=== PATIENT | female | born 1985 | race Hispanic/Latino ===

== ENCOUNTER 2017-01-04 09:38 | Emergency (ER) | payer OTHER ==
[~2017-01-04] VITALS: Ht 154.9 cm; Wt 67.4 kg
[~2017-01-04 09:38] MED LIST: IBUPROFEN800 MG PO; PRENAPLUS TABL1 EACH PO; PRENATAL1 EACH PO
[2017-01-04] MEDS ORDERED: BACTRIM,SEPT1 TABLET PO (10:20)
[2017-01-04 11:07] LABS: HEMATOCRIT 42.7 % (36.0-46.0); MCH 28.7 PG (29.0-34.0); MCHC 33.3 G/DL (30.0-36.0); MCV 86.3 FL (83-99); MEAN PLAT.VOLUME 10.7 uM^3 (9.5-12.4); PLATELET COUNT 375 K/uL (156-360); RBC DIS.WIDTH-CV 12.5 % (11.8-14.6); RBC DIS.WIDTH-SD 39.1 % (39-53); RED BLOOD COUNT 4.95 M/uL (3.80-5.20); WHITE BLOOD COUNT 6.5 K/uL (4.1-10.2)
[2017-01-04 11:17] LABS: CHLORIDE 110 mEq/L (99-109); POTASSIUM 3.9 mEq/L (3.7-5.4); SODIUM 139 mEq/L (136-147)
[2017-01-04 11:19] LABS: GLUCOSE 94 mg/dL (70-99)
[2017-01-04 11:20] LABS: ANION GAP 11 MEQ/L (2-14)
[2017-01-04 11:23] LABS: GFR ESTIMATE (CALCULATED) > 59 mL/min/
[2017-01-04 11:24] LABS: UREA NITROGEN (BUN) 12 mg/dL (9-23)
[2017-01-04 11:27] LABS: TROP-I INTERPRETATION NEGATIVE; TROPONIN-I < 0.01 ng/mL (0.0-0.30)
[2017-01-04 11:32] LABS: QUANTITATIVE HCG < 4.0 MIU/ML
[2017-01-04 12:38] VITALS: BP 115/59
== END 2017-01-04 12:39 | disposition home or self-care (01) ==
LOC: EME 09:38
PROVIDERS: Emergency Medicine
DX: R07.89 Other chest pain (principal)
CPT/HCPCS: 80048; 84484; 84702; 85027; 93005; 99281; 99284; J1200; J1885; J2765; J7030

== ENCOUNTER 2018-04-28 09:15 | Emergency (ER) | payer OTHER ==
[~2018-04-28] VITALS: Ht 157.5 cm; Wt 66.6 kg
[~2018-04-28 09:15] MED LIST changes: +BACTRIM,SEPT1 TABLET PO
[2018-04-28] MEDS ORDERED: MOTRIN600 MG PO (13:07)
[2018-04-28 13:14] VITALS: BP 116/72
== END 2018-04-28 13:16 | disposition home or self-care (01) ==
LOC: EME 09:15
DX: S80.01XA Contusion of right knee, initial encounter (principal); S39.012A Strain of muscle, fascia and tendon of lower back, initial encounter; W01.0XXA Fall on same level from slipping, tripping and stumbling without subsequent striking against object, initial encounter; Y99.0 Civilian activity done for income or pay; Y92.59 Other trade areas as the place of occurrence of the external cause
CPT/HCPCS: 73564; 99281; 99284